=== PATIENT | male | born 1985 | race Hispanic/Latino ===

== ENCOUNTER 2018-05-14 17:16 | Emergency (ER) | payer BC, SELFPAY ==
[2018-05-14] MEDS ORDERED: Lidocaine 1% (PF) 30 ML VIAL ONE ×2 (17:22→18:39)
--- NOTE | 2018-05-14 17:51 | RAD ---
LEFT HAND THREE VIEWS: 05/14/18 HISTORY: Right hand injury, right third finger partial amputation and right fifth finger laceration. There is overlying bandage material. There is evidence for Skin and soft tissue injury particularly involving the fifth finger. Probably also the fourth and thi rd fingers. No evidence for foreign body. No acute fracture or dislocation. IMPRESSION: Soft tissue injury. No evidence for acute fracture or dislocation or foreign body. Bandage material o verlies the fifth finger in particular. POS: [facility]
[2018-05-14] MEDS ORDERED: CEFAZOLIN 1 GM VIAL ONE (18:02)
[2018-05-14] MEDS ORDERED: Sodium Chloride 0.9% 100 ML ONE (18:03)
[2018-05-14 18:05] LABS: #Basophils 0.1 thou/uL (0.0-0.2); #Lymphocytes 2.6 thou/uL (1.20-3.40); #Monocytes 0.7 thou/uL (0.11-0.59); #Neutrophils 8.8 thou/uL (1.40-6.50); %Basophils 0.9 % (0.0-1.0); %Eosinophils 0.4 % (0.0-10.0); %Lymphocytes 20.9 % (21.0-51.0); %Monocytes 5.8 % (0.0-10.0); Hemoglobin 12.6 g/dL (14.0-18.0); Mean Corpuscular HGB CONC 33.7 g/dL (32.0-36.0); Mean Corpuscular Hemoglobin 29.4 pg (27.0-31.0); Mean Corpuscular Volume 87.2 fL (78.0-98.0); Mean Platelet Volume 8.4 fL (7.4-10.4); Platelet Count 255 thou/uL (130-400); RBC Distribution Width 11.4 % (11.5-14.5); Red Blood Cell (RBC) Count 4.27 mill/uL (4.70-6.10); White Blood Cell (WBC) Count 12.2 thou/uL (4.8-10.8)
[2018-05-14] MEDS ORDERED: Adacel (T-DAP) 0.5 ML SYRINGE ONE (18:13)
[2018-05-14 18:16] LABS: Anion Gap 12 mmol/L (10-20); BUN (Urea Nitrogen) 15 mg/dL (8.9-20.6); Calc. Creatinine Clearance 0 mL/min (70-130); Carbon Dioxide 24 mmol/L (22-29); Chloride 105 mmol/L (98-107); Estimated GFR-MDRD 78; Glucose 124 mg/dL (70-105); Potassium 3.2 mmol/L (3.5-5.1); Sodium 138 mmol/L (136-145)
== END 2018-05-14 18:56 | disposition short-term general hospital (02) ==
LOC: NAV ERS 17:16
DX: S61.210A Laceration without foreign body of right index finger without damage to nail, initial encounter (principal); S66.104A Unspecified injury of flexor muscle, fascia and tendon of right ring finger at wrist and hand level, initial encounter; S66.106A Unspecified injury of flexor muscle, fascia and tendon of right little finger at wrist and hand level, initial encounter; F17.210 Nicotine dependence, cigarettes, uncomplicated; W26.0XXA Contact with knife, initial encounter
CPT/HCPCS: 29125; 80048; 85025; 90471; 90715; 96365; J0690; J2001; J7050